=== PATIENT | female | born 1940 | race Hispanic/Latino ===

== ENCOUNTER 2024-02-26 09:31 | Emergency (ER) | payer MEDICARE, OTHER ==
[~2024-02-26] VITALS: Ht 142.2 cm; Wt 57.2 kg
[~2024-02-26 09:31] MED LIST: ASPIRIN81 MG PO; CEFTRIAXONE100 GM IV; DOCUSATE SODIU100 MG PO; ELIQUIS2.5 MG PO; FERROUS SULFAT325 MG PO; FOLIC ACID0.4 MG PO; FUROSEMIDE40 MG PO; GABAPENTIN300 MG PO; HYDROXYCHLOROQ200 MG PO; METOPROLOL TART50 MG PO; OXYBUTYNIN CHLOR5 MG PO; PANTOPRAZOLE SO40 MG PO; PREDNISOLONE5 M1 PO; SUCRALFATE1 GM PO; ULTRAM 50MG50 MG PO
[2024-02-26 09:38] VITALS: PULSE 62; RESP 17; TEMP 97.8; O2SAT 100
[2024-02-26] MEDS ORDERED: MEDROL4 M2 PO (09:57)
[2024-02-26] MEDS ORDERED: ULTRAM 50MG50 MG PO (09:57)
== END 2024-02-26 10:07 | disposition home or self-care (01) ==
LOC: ER 09:34
DX: M54.42 Lumbago with sciatica, left side (principal); I48.91 Unspecified atrial fibrillation; K21.9 Gastro-esophageal reflux disease without esophagitis; M06.9 Rheumatoid arthritis, unspecified; G89.29 Other chronic pain; Z96.643 Presence of artificial hip joint, bilateral
CPT/HCPCS: 99282